=== PATIENT | male | born 1940 | race Caucasian/White ===

== ENCOUNTER 2017-02-03 07:46 | Day surgery (SDC) | payer OTHER ==
[2017-02-02 17:25] VITALS: BMI 26.6
[2017-02-03] MEDS ORDERED: SODIUM CHLORIDE 1,000 ML IV SCH (08:45)
--- NOTE | 2017-02-03 08:47 | HP ---
CHIEF COMPLAINT: CT enterography PCP: Dr. Merino GI: Dr. Mehta HISTORY OF PRESENT ILLNESS: 76 yr old man with HTN and renal insufficiency referred by Dr. Mehta for pre- post hydration for CT enterography to further evaluate intermittent abdominal spasm-like 10/10 pain for the past 3 years. pain is marked the left lower quadrant, at times in the RUQ, no alleviating or exacerbating factors. He has been having loss of appetite and notes unintentional 4lb weight loss in the past 2 weeks. Patient has no family. person to contact: Sheri Mendosa [phone]. Discussed resuscitation with patient; he has not thought about it in the past, does not have a healthcare proxy/advance directives. At this time he is not ready to make a decision. PAST MEDICAL HISTORY: HTN Renal Insufficiency PAST SURGICAL HISTORY: b/l knee replacement in 10/2016 osteoarthritis Social History: Smoking: denies Alcohol: denies Drugs: denies Allergies No Known Drug Allergies Allergy (Verified 02/02/17 17:28) HOME MEDICATIONS: Home Medications Medication Instructions Recorded Lisinopril [Prinivil] 5 mg PO DAILY 02/02/17 Omeprazole 20 mg PO DAILY 02/02/17 Vit C/E/Zn/Coppr/Lutein/Zeaxan 1 each PO DAILY 02/02/17 [Preservision Areds 2 Softgel] REVIEW OF SYSTEMS CONSTITUTIONAL: Present: unintentional weight loss of 4lbs in past 2 weeks Absent: fever, chills, diaphoresis, generalized weakness, malaise, loss of appetite, HEENT: Absent: difficulty swallowing, vision changes CARDIOVASCULAR: Present:b/l LE peripheral edema Absent: chest pain, syncope, palpitations, lightheadedness, RESPIRATORY: Absent: cough, shortness of breath GASTROINTESTINAL: Present:abdominal pain, nausea, Absent: abdominal distension, vomiting, diarrhea, constipation, melena, hematochezia GENITOURINARY: Absent: dysuria, frequency, urgency, hesitancy, hematuria, flank pain, genital pain NEUROLOGIC: Absent: headache, dizziness, unsteady gait, seizure, mental status changes, bladder or bowel incontinence PHYSICAL EXAMINATION GENERAL: Awake, alert, and fully oriented, in no acute distress. HEAD: Normal with no signs of trauma. EYES: Pupils equal, round and reactive to light, extraocular movements intact, sclera anicteric, conjunctiva clear. EARS, NOSE, THROAT: oropharynx clear without exudates. Moist mucous membranes. LUNGS: Breath sounds equal, clear to auscultation bilaterally. No wheezes, and no crackles. No accessory muscle use. HEART: Regular rate and rhythm, normal S1 and S2 without murmur, rub or gallop. ABDOMEN: Soft, mildly tender in RUQ and LLQ with deep palpation, not distended, normoactive bowel sounds, no guarding, no rebound, no masses. MUSCULOSKELETAL: No bony deformities or tenderness. UPPER EXTREMITIES: 2+ radial b/l pulses, warm, well-perfused. No cyanosis. No clubbing. No peripheral edema. LOWER EXTREMITIES: No calf tenderness. trace peripheral edema upto knees. NEUROLOGICAL:Normal speech. Normal gait. facial symmetry. 5/5 handgrip ASSESSMENT/PLAN: 76 yr old man here for CT enterography pre and post-hydration due to elevated Creatinine. #Renal insufficiency - 01/22 BMP with cr of 1.7, unable to obtain records from PCP's office to trend fxn, - IVF NS @ 100cc/hr for [address]ography and 4 hours post-exam - recommend pt to have repeat BMP in 2 days to evaluate Cr. #CT Enterography IV and po contrast #Diet: NPO for test, hold home medications (lisinopril and omeprazole) #DVT: anticipate short stay, encourage ambulation Visit type - Emergency Visit Emergency Visit: No - New Patient This patient is new to me today: Yes Date on this admission: 02/03/17 - Critical Care Critical Care patient: No
[2017-02-03 09:17] VITALS: TEMP 98.4
--- NOTE | 2017-02-03 15:38 | PN ---
Teaching Attending Note Name of Resident: Angely Galdamez ATTENDING PHYSICIAN STATEMENT I saw and evaluated the patient. I reviewed the resident's note and discussed the case with the resident. I agree with the resident's findings and plan as documented. SUBJECTIVE: This is a 76-year-old man with a history of HTN, CKD who comes in to undergo CT enterography for evaluation of intermittent abdominal pain. The pain has been occurring for about 3 years. It is usually in the LLQ. He has nausea, loss of appetite, weight loss of 4 lbs over the last 2 weeks. He denies fever, chills, vomiting, diarrhea, constipation, melena, rectal bleeding. OBJECTIVE: Vital Signs Period Temp Pulse Resp BP Sys/Powell Pulse Ox Last 24 Hr 98.4 F-98.4 F 88-88 18-18 107-107/57-57 HEART: S1 S2, RRR LUNGS: Clear ABDOMEN: Soft, non-distended, mild LLQ/RLQ tenderness, normal BS EXTREMITIES: No edema ASSESSMENT AND PLAN: This is a 76-year-old man with a history of HTN, CKD who comes in to undergo CT enterography for evaluation of intermittent abdominal pain. 1. Abdominal pain - Here for CT enterography - Needs IV hydration because of CKD - IV NS @ 100cc/hr x 4 hrs prior to and 4 hrs after exam 2. CKD - Baseline creatinine unknown 3. Hypertension - Continue Lisinopril
[2017-02-03 18:13] VITALS: BP 120/68; PULSE 76
== END 2017-02-03 18:00 | disposition home or self-care (01) ==
LOC: SUATTDRO 07:46 → JASUSAT 07:46 → JASU-SURG 07:46 → JASUSAT 18:00
PROVIDERS: ATTEND Internal Medicine
PROC: 3E0337Z Introduction of Electrolytic and Water Balance Substance into Peripheral Vein, Percutaneous Approach (ICD-10-PCS; principal; 2017-02-03)
DX: R10.32 Left lower quadrant pain (principal)
CPT/HCPCS: 96360; 96361

== ENCOUNTER 2017-04-12 06:36 | Day surgery (SDC) | payer OTHER ==
[2017-04-08 12:38] VITALS: BMI 27.2
[2017-04-12] MEDS ORDERED: MIDAZOLAM HCL 2 MG/2 ML SINGLE DOSE VIAL ONE (08:04)
[2017-04-12] MEDS ORDERED: PROPOFOL 20 ML ONE (08:04)
[2017-04-12] MEDS ORDERED: LIDOCAINE HCL/PF 2% SDV 5ML VIAL ONE (08:06)
[2017-04-12] MEDS ORDERED: LEVOFLOXACIN 500 MG IVPB 100 ML IVPB ONE (08:06)
[2017-04-12] MEDS ORDERED: ceFAZolin SODIUM 1 GM VIAL ONE (08:22)
[2017-04-12] MEDS ORDERED: ceFAZolin SODIUM 1 GM VIAL IVPB ONE (08:23)
[2017-04-12] MEDS ORDERED: oxyCODONE HCL 5 MG TABLET PO PRN (08:31)
--- NOTE | 2017-04-12 08:33 | OP ---
Operative Note - Note: Operative Date: 04/12/17 Pre-Operative Diagnosis: left distal ureteral stone-9mm Operation: ESWL Findings: LDU stone Post-Operative Diagnosis: Same as Pre-op Surgeon: Hay Cox Anesthesia: General Estimated Blood Loss (mls): 0 Operative Report Dictated: Yes
[2017-04-12] MEDS ORDERED: ELECTROLYTE-148 SOLN 1,000 ML IV SCH (08:45)
[2017-04-12] MEDS ORDERED: ACETAMINOPHEN 325 MG TABLET (FP) PO PRN (09:07)
[2017-04-12] MEDS ORDERED: ONDANSETRON 4 MG/2 ML VIAL IVPUSH PRN (09:07)
[2017-04-12] MEDS ORDERED: LACTATED RINGERS SOLUTION 1,000 ML IV SCH (09:15)
[2017-04-12 09:26] VITALS: TEMP 97.8
[2017-04-12 10:21] VITALS: BP 137/73; PULSE 67
--- NOTE | 2017-04-19 15:31 | OP ---
DATE OF OPERATION: 04/12/2017 PREOPERATIVE DIAGNOSIS: Left distal ureteral stone. POSTOPERATIVE DIAGNOSIS: Left distal ureteral stone. PROCEDURE: Extracorporeal shock wave lithotripsy. SURGEON: Trey Chan MD INDICATIONS: The patient is a 76-year-old male with a symptomatic left distal ureteral stone 9 mm in size. After reviewing treatment options, the patient elected to undergo ESWL. Risks, benefits and alternatives were discussed. DESCRIPTION OF PROCEDURE: After informed consent was obtained, the patient was taken to the OR and placed supine on the fluoroscopy table. Under active fluoroscopy, the stone was visualized, and then cardiac monitoring and general anesthesia were then established. Under active fluoroscopy, the stone was centered between the crosshairs and 3000 shocks were delivered. There appeared to be fragmentation of the stone after the procedure. The patient was then awoken from anesthesia and transferred to the recovery room in stable condition. There were no complications. Estimated blood loss was 0. TREY CHAN M.D. [id number]
== END 2017-04-12 10:15 | disposition home or self-care (01) ==
LOC: JASU-SURG 06:36
PROVIDERS: ATTEND Urology
PROC: 0TF7XZZ Fragmentation in Left Ureter, External Approach (ICD-10-PCS; principal; 2017-04-12 08:00)
DX: N20.1 Calculus of ureter (principal)
CPT/HCPCS: 94760

== ENCOUNTER 2017-05-12 08:19 | Day surgery (SDC) | payer OTHER ==
[2017-05-11 14:07] VITALS: BMI 27.3
[2017-05-12] MEDS ORDERED: MIDAZOLAM HCL 2 MG/2 ML SINGLE DOSE VIAL ONE (09:45)
[2017-05-12 10:14] LABS: INR 1.01 (0.82-1.09); PROTHROMBIN TIME (PATIENT) 11.4 SEC (9.98-11.88)
[2017-05-12] MEDS ORDERED: LIDOCAINE HCL/PF 2% SDV 5ML VIAL ONE (10:22)
[2017-05-12] MEDS ORDERED: LEVOFLOXACIN 500 MG IVPB 500 MG/100 ML BAG IVPB ONE (10:23)
[2017-05-12] MEDS ORDERED: PROPOFOL 20 ML ONE (10:23)
[2017-05-12] MEDS ORDERED: LEVOFLOXACIN 500 MG PREMIX BAG IVPB ONE (10:35)
[2017-05-12] MEDS ORDERED: FUROSEMIDE 40 MG/4 ML INJECTABLE VIAL ONE (10:57)
[2017-05-12] MEDS ORDERED: oxyCODONE HCL 5 MG TABLET PO PRN ×2 (11:20→11:29)
--- NOTE | 2017-05-12 11:22 | OP ---
Operative Note - Note: Operative Date: 05/12/17 Pre-Operative Diagnosis: impacted left DU stone Operation: cysto/retrograde/left ureteroscopy/laser litho/stent Findings: impacted LDU stone Post-Operative Diagnosis: Same as Pre-op Surgeon: Hay Cox Anesthesiologist/[employer] SUPERVISOR: Hay Garcia Anesthesia: General Estimated Blood Loss (mls): 1 Drains & Tubes with Location: 7fr 24cm stent Operative Report Dictated: Yes
[2017-05-12] MEDS ORDERED: ONDANSETRON 4 MG/2 ML VIAL IVPUSH PRN (11:29)
[2017-05-12] MEDS ORDERED: PROMETHAZINE HCL 25 MG/1 ML VIAL IVPUSH PRN (11:29)
[2017-05-12] MEDS ORDERED: LACTATED RINGERS SOLUTION 1,000 ML IV SCH (11:30)
[2017-05-12] MEDS ORDERED: DEXTROSE 5%-0.45% SALINE 1,000 ML IV SCH (11:30)
--- NOTE | 2017-05-12 12:16 | OP ---
DATE OF OPERATION: 05/12/2017 PREOPERATIVE DIAGNOSIS: Impacted left distal ureteral stone. POSTOPERATIVE DIAGNOSIS: Impacted left distal ureteral stone. PROCEDURE: Cystoscopy, ureteroscopy, laser lithotripsy, stone basketing, and stent placement. SURGEON: Trey Chan MD INDICATION: Patient is a 76-year-old male with an approximately 1-cm left distal ureteral stone, has failed ESWL, was taken to the OR for laser lithotripsy. Risks, benefits, and alternatives discussed including the risks of bleeding, infection, stricture formation, potential need for additional surgery, potential inability to eradicate stone burden. DESCRIPTION OF PROCEDURE: After informed consent was obtained, patient was taken to the OR, placed supine on the table. After cardiac monitoring administered, general anesthesia was established. She was prepped and draped in the dorsal lithotomy position. The 22-sheath cystoscope was inserted into the urethra without difficulty. Anterior urethra was normal. The prostatic urethra was 4 cm and visually occlusive with an enlarged median bar. There bladder was visualized. No tumors or stones were noted in the bladder. Attention was turned to the left ureteral orifice which was intubated with a ureteral catheter. Contrast injected for retrograde pyelogram. There was hydronephrosis down to the level of the distal ureter where the stone was seen. Guidewire was advanced beyond the stone into the left renal pelvis. Alongside the guidewire, a semi-rigid ureteroscope was advanced into the ureter where an approximately 1-cm stone was seen impacted in the ureter with narrowing of the ureteral wall. The stone was pulverized to fine dust and 1-2 mm fragments. Several of these fragments were then evacuated out, and a basket was used to remove two of these fragments and sent to Pathology for analysis. With the entire stone burden cleared, the ureter was inspected up to the level of the mid-ureter. No other stone was noted. Again, the ureter where the stone appeared to be impacted was narrowed, indicating some stricture. Ureteroscope was then removed, and a 7-[place] 24-cm double-pigtail stent was then advanced in monorail fashion. Fluoroscopy the stent to be in good position. The patient was then awoken from anesthesia and transferred to the recovery room in stable condition. There were no complications. Estimated blood loss was minimal. TREY CHAN M.D. [id number]
[2017-05-12 12:29] VITALS: TEMP 97.9
[2017-05-12 15:38] VITALS: BP 128/77; PULSE 73
--- NOTE | 2017-05-13 08:59 | PATH ---
Surgical Pathology Report Patient Name: MADDIE DOWNING [facility]. Rec. #: [id number] /Age/Gender: 1940 (Age: 76) / M Account: [id number] Location: [facility] SURGICAL Taken: 05/12/2017 Received: 05/12/2017 Reported: 05/13/2017 Physicians: Hay Cox M.D. Specimen(s) Received LEFT URETER STONE Clinical History Ureter stone Final Diagnosis LEFT URETERAL STONE, EXTRACTION: CALCULI SUBMITTED FOR CHEMICAL ANALYSIS (gross only). Electronically Signed Mulugeta Lyn M.D. Gross Description Received fresh labeled "left ureter stone," are 2 chandler, irregular calculi measuring 0.2 and 0.4 cm in greatest dimension. The specimens are sent for chemical analysis. 05/12/201705/12/2017
== END 2017-05-12 15:30 | disposition home or self-care (01) ==
LOC: JASU-SURG 08:19
PROVIDERS: ATTEND Urology
PROC: 0TF78ZZ Fragmentation in Left Ureter, Via Natural or Artificial Opening Endoscopic (ICD-10-PCS; principal; 2017-05-12 11:00)
PROC: 0T778DZ Dilation of Left Ureter with Intraluminal Device, Via Natural or Artificial Opening Endoscopic (ICD-10-PCS; 2017-05-12 11:00)
DX: N20.1 Calculus of ureter (principal)
CPT/HCPCS: 36415; 76000-TC; 82360; 85610; 88300-TC; 94760

== ENCOUNTER 2023-04-21 05:15 | Day surgery (SDC) | payer OTHER ==
[2023-04-20 09:11] VITALS: BMI 25.9
[2023-04-21 12:31] VITALS: TEMP 97.5
[2023-04-21 13:18] VITALS: RESP 18
[2023-04-21 13:19] VITALS: BP 130/64; PULSE 66
== END 2023-04-21 13:00 | disposition home or self-care (01) ==
LOC: JASU-ENDO 05:15
PROVIDERS: ATTEND Internal Medicine Gastroenterology
PROC: 0DBL8ZX Excision of Transverse Colon, Via Natural or Artificial Opening Endoscopic, Diagnostic (ICD-10-PCS; 2023-04-21)
PROC: 0DB68ZX Excision of Stomach, Via Natural or Artificial Opening Endoscopic, Diagnostic (ICD-10-PCS; 2023-04-21)
PROC: 0DB78ZX Excision of Stomach, Pylorus, Via Natural or Artificial Opening Endoscopic, Diagnostic (ICD-10-PCS; 2023-04-21)
PROC: 0DBK8ZX Excision of Ascending Colon, Via Natural or Artificial Opening Endoscopic, Diagnostic (ICD-10-PCS; principal; 2023-04-21 11:30)
DX: D12.3 Benign neoplasm of transverse colon (principal); K57.30 Diverticulosis of large intestine without perforation or abscess without bleeding; N40.0 Benign prostatic hyperplasia without lower urinary tract symptoms; K31.7 Polyp of stomach and duodenum; K44.9 Diaphragmatic hernia without obstruction or gangrene; I10 Essential (primary) hypertension
CPT/HCPCS: 88305-TC; 88342-TC

== ENCOUNTER 2023-05-19 00:50 | Observation (INO) | payer OTHER ==
[2023-05-19] MEDS ORDERED: ACETAMINOPHEN 1000 MG/100 ML BAG IVPB ONE (02:20)
[2023-05-19] MEDS ORDERED: ACETAMINOPHEN INJECTION 100 ML IVPB ONE (02:33)
[2023-05-19 02:53] LABS: BASO % 0.2 % (0-2.0); EOS % 0.4 % (0-4.5); HEMATOCRIT 38.3 % (35.4-49); HEMOGLOBIN 12.9 GM/dL (11.7-16.9); LYMPH % 15.2 % (8-40); MCH 30.8 pg (25.7-33.7); MCHC 33.6 g/dl (32.0-35.9); MEAN CELL VOLUME 91.7 fl (80-96); MEAN PLT VOLUME 9.2 fl (7.5-11.1); MONO % 14.7 % (3.8-10.2); NEUT % 69.5 % (42.8-82.8); PLATELET COUNT 235 10^3/uL (134-434); RBC 4.17 M/mm3 (4.00-5.60); WHITE BLOOD COUNT 7.4 K/mm3 (4.0-10.0)
[2023-05-19 02:54] LABS: PH,URINE 5.5 (5.0-8.0); URINE APPEARANCE CLEAR; URINE BILIRUBIN NEGATIVE (NEGATIVE); URINE COLOR YELLOW; URINE GLUCOSE (UA) NEGATIVE (NEGATIVE); URINE KETONE TRACE (NEGATIVE); URINE LEUK ESTERASE NEGATIVE (NEGATIVE); URINE NITRITE NEGATIVE (NEGATIVE); URINE PROTEIN TRACE (NEGATIVE); URINE UROBILINOGEN 0.2 mg/dL (0.2-1.0)
[2023-05-19 03:14] LABS: POTASSIUM 4.4 mmol/L (3.5-5.1)
[2023-05-19 03:16] LABS: ALBUMIN 3.6 g/dl (3.4-5.0); BLOOD UREA NITROGEN 22.6 mg/dL (7-18); CALCIUM 9.2 mg/dL (8.5-10.1)
[2023-05-19 03:18] LABS: INR 1.24 (0.83-1.09); PROTHROMBIN TIME (PATIENT) 14.3 SEC (9.7-13.0)
[2023-05-19 03:19] LABS: CREATININE 1.6 mg/dL (0.55-1.3)
[2023-05-19 03:20] LABS: ACTIVATED PTT 33.9 SECONDS (25.2-36.5)
[2023-05-19 03:21] LABS: BILIRUBIN,TOTAL 0.6 mg/dL (0.2-1); TOT PROT 7.3 g/dl (6.4-8.2)
[2023-05-19] MEDS ORDERED: SODIUM CHLORIDE 1,000 ML IV SCH (08:30)
[2023-05-19] MEDS ORDERED: ACETAMINOPHEN 1000 MG/100 ML BAG IVPB PRN (08:53)
[2023-05-19] MEDS ORDERED: ATORVASTATIN CA 20 MG TABLET (FP) PO SCH (09:00)
[2023-05-19] MEDS ORDERED: LEVOTHYROXINE NA 50 MCG TABLET (FP) PO SCH (09:00)
[2023-05-19] MEDS ORDERED: PATIENT'S OWN MEDICATION (NON-FORMULARY) (Famotidine [Pepcid] 40 MG Tablet) PO SCH (10:00)
[2023-05-19] MEDS ORDERED: FAMOTIDINE 20 MG TABLET PO SCH (10:00)
[2023-05-19] MEDS ORDERED: MULTIVITAMINS (DAILY MVI) TABLET (FP) PO SCH (10:00)
[2023-05-19] MEDS ORDERED: CHOLECALCIFEROL (VIT D3) 400 UNIT (10 MCG) TABLET PO SCH (10:00)
[2023-05-19] MEDS ORDERED: amLODIPine BESYLATE 2.5 MG TABLET (FP) PO SCH (10:00)
[2023-05-19] MEDS ORDERED: LEVOTHYROXINE NA 25 MCG TABLET (FP) PO SCH (10:39)
[2023-05-19 11:29] VITALS: BMI 25.9
[2023-05-19 15:57] VITALS: BP 150/87; PULSE 84; RESP 18; TEMP 98.2
[2023-05-20] MEDS ORDERED: ATORVASTATIN CA 20 MG TABLET (FP) PO SCH (22:00)
== END 2023-05-19 19:42 | disposition home or self-care (01) ==
LOC: JER 00:50 → INTOOBSV 07:46 → UNDOADMOB 07:46 → JERBED 07:46 → J6S 08:51
PROVIDERS: ADMIT Internal Medicine; ATTEND Internal Medicine
PROC: 3E033NZ Introduction of Analgesics, Hypnotics, Sedatives into Peripheral Vein, Percutaneous Approach (ICD-10-PCS; principal; 2023-05-19)
PROC: 3E0337Z Introduction of Electrolytic and Water Balance Substance into Peripheral Vein, Percutaneous Approach (ICD-10-PCS; 2023-05-19)
DX: K86.9 Disease of pancreas, unspecified (principal); K76.9 Liver disease, unspecified; R19.00 Intra-abdominal and pelvic swelling, mass and lump, unspecified site; I10 Essential (primary) hypertension; E78.5 Hyperlipidemia, unspecified; N40.0 Benign prostatic hyperplasia without lower urinary tract symptoms; E03.9 Hypothyroidism, unspecified; H91.90 Unspecified hearing loss, unspecified ear; K44.9 Diaphragmatic hernia without obstruction or gangrene; K80.20 Calculus of gallbladder without cholecystitis without obstruction
CPT/HCPCS: 36415; 71045-TC-FY; 74177-TC; 80053; 81003; 83605; 83690; 84484; 85025; 85610; 85730; 93005; 93010; 96361; 96374; 99285-25; G0378; Q9967

== ENCOUNTER 2023-06-01 05:28 | Day surgery (SDC) | payer OTHER ==
[2023-05-31 10:16] VITALS: BMI 25.2
[2023-06-01 09:16] VITALS: TEMP 97.8
[2023-06-01] MEDS ORDERED: MIDAZOLAM HCL 2 MG/2 ML SINGLE DOSE VIAL ONE (10:20)
[2023-06-01] MEDS ORDERED: FENTANYL CITRATE/PF 50 MCG/ML VIAL ONE (10:20)
[2023-06-01] MEDS ORDERED: SODIUM CHLORIDE 500 ML IV ONE (10:45)
[2023-06-01] MEDS ORDERED: MIDAZOLAM HCL 2 MG/2 ML SINGLE DOSE VIAL IVPUSH ONE (10:55)
[2023-06-01] MEDS ORDERED: ACETAMINOPHEN 1000 MG/100 ML BAG IVPB PRN (11:30)
[2023-06-01 15:47] VITALS: BP 140/80; RESP 20
[2023-06-01 16:28] VITALS: PULSE 78
== END 2023-06-01 15:30 | disposition home or self-care (01) ==
LOC: JRADIR 05:28
PROVIDERS: ATTEND Internal Medicine Hematology & Oncology
PROC: 0FB03ZX Excision of Liver, Percutaneous Approach, Diagnostic (ICD-10-PCS; principal; 2023-06-01)
PROC: 0W9G3ZZ Drainage of Peritoneal Cavity, Percutaneous Approach (ICD-10-PCS; 2023-06-01)
DX: C22.7 Other specified carcinomas of liver (principal); R18.8 Other ascites
CPT/HCPCS: 47000; 77012-TC; 88108; 88305-TC; 88307-TC; 88341-TC; 88342-TC

== ENCOUNTER 2023-06-17 07:07 | Day surgery (SDC) | payer OTHER ==
[2023-06-15 13:32] VITALS: BMI 24.2
[2023-06-17 07:51] LABS: INR 1.26 (0.83-1.09); PROTHROMBIN TIME (PATIENT) 14.6 SEC (9.7-13.0)
[2023-06-17] MEDS ORDERED: FENTANYL CITRATE/PF 50 MCG/ML VIAL ONE (10:55)
[2023-06-17] MEDS ORDERED: MIDAZOLAM HCL 2 MG/2 ML SINGLE DOSE VIAL ONE (10:55)
[2023-06-17] MEDS ORDERED: SODIUM CHLORIDE 500 ML IV ONE (11:35)
[2023-06-17] MEDS ORDERED: MIDAZOLAM HCL 2 MG/2 ML SINGLE DOSE VIAL IVPUSH ONE (11:50)
[2023-06-17] MEDS ORDERED: FENTANYL CITRATE/PF 50 MCG/ML VIAL IVPUSH ONE (11:50)
[2023-06-17 13:00] VITALS: RESP 18; TEMP 98.2
[2023-06-17] MEDS ORDERED: ACETAMINOPHEN 325 MG TABLET (FP) ONE ×2 (13:03→13:05)
[2023-06-17 13:38] VITALS: BP 138/70; PULSE 83
== END 2023-06-17 13:35 | disposition home or self-care (01) ==
LOC: JRADIR 07:07
PROVIDERS: ATTEND Internal Medicine Hematology & Oncology
PROC: 0JH63WZ Insertion of Totally Implantable Vascular Access Device into Chest Subcutaneous Tissue and Fascia, Percutaneous Approach (ICD-10-PCS; principal; 2023-06-17)
PROC: 05HM33Z Insertion of Infusion Device into Right Internal Jugular Vein, Percutaneous Approach (ICD-10-PCS; 2023-06-17)
PROC: B513ZZA Fluoroscopy of Right Jugular Veins, Guidance (ICD-10-PCS; 2023-06-17)
DX: C25.1 Malignant neoplasm of body of pancreas (principal)
CPT/HCPCS: 36561; C1788; 85610

== ENCOUNTER 2023-06-17 09:33 | Day surgery (SDC) | payer OTHER ==
[2023-06-17 08:11] LABS: POTASSIUM 4.6 mmol/L (3.5-5.1)
[2023-06-17 08:13] LABS: CALCIUM 9.2 mg/dL (8.5-10.1)
[2023-06-17 08:14] LABS: ALBUMIN 3.4 g/dl (3.4-5.0); BLOOD UREA NITROGEN 26.2 mg/dL (7-18)
[2023-06-17 08:16] LABS: BILIRUBIN,DIRECT 0.2 mg/dL (0.0-0.2)
[2023-06-17 08:17] LABS: CREATININE 1.4 mg/dL (0.55-1.3)
[2023-06-17 08:18] LABS: BILIRUBIN,TOTAL 0.6 mg/dL (0.2-1); TOT PROT 7.4 g/dl (6.4-8.2)
[2023-06-17 08:24] LABS: BASO % 0.3 % (0-2.0); EOS % 1.1 % (0-4.5); HEMATOCRIT 39.1 % (35.4-49); HEMOGLOBIN 12.8 GM/dL (11.7-16.9); MCHC 32.8 g/dl (32.0-35.9); MEAN CELL VOLUME 91.5 fl (80-96); MEAN PLT VOLUME 9.7 fl (7.5-11.1); NEUT % 74.6 % (42.8-82.8); PLATELET COUNT 175 10^3/uL (134-434); RBC 4.28 M/mm3 (4.00-5.60); WHITE BLOOD COUNT 7.9 K/mm3 (4.0-10.0)
[2023-06-17 08:50] LABS: PLATELET ESTIMATE ADEQUATE
[~2023-06-17 09:33] MED LIST: SODIUM CHLORIDE 250 ML IV ONE
[2023-06-17] MEDS ORDERED: GRANISETRON HCL/PF 1 MG in SODIUM CHLORIDE 50 ML IVPB ONE (10:00)
[2023-06-17] MEDS ORDERED: DEXAMETHASONE SODIUM PHOSPHATE 10 MG in SODIUM CHLORIDE 50 ML IVPB ONE (10:00)
[2023-06-17] MEDS ORDERED: SODIUM CHLORIDE IVPB ONE ×2 (10:30→14:45)
[2023-06-17] MEDS ORDERED: PACLITAXEL PROTEIN BOUND IVPB ONE ×2 (10:30→14:45)
[2023-06-17] MEDS ORDERED: SODIUM CHLORIDE IV ONE (11:00)
[2023-06-17] MEDS ORDERED: GEMCITABINE HCL IV ONE (11:00)
[2023-06-17] MEDS ORDERED: MIDAZOLAM HCL 2 MG/2 ML SINGLE DOSE VIAL IVPUSH ONE (13:00)
[2023-06-17] MEDS ORDERED: FENTANYL CITRATE/PF 50 MCG/ML VIAL IVPUSH ONE (13:00)
[2023-06-17] MEDS ORDERED: FENTANYL CITRATE/PF 50 MCG/ML VIAL IVPUSH SCH (13:00)
[2023-06-17 17:03] VITALS: TEMP 97.7
[2023-06-17 17:18] VITALS: BP 114/70; PULSE 97; RESP 18
[2023-06-17] MEDS ORDERED: PORTA CATH FLUSH 10 ML IVPUSH PRN (17:18)
== END 2023-06-17 16:45 | disposition home or self-care (01) ==
LOC: JONCCHEMO 09:33 → J7W 09:35 → JONCCHEMO 16:45
PROVIDERS: ATTEND Internal Medicine Hematology & Oncology
DX: Z51.11 Encounter for antineoplastic chemotherapy (principal); C25.1 Malignant neoplasm of body of pancreas
CPT/HCPCS: 36415; 80048; 80076; 85025; 96375; 96413; 96417; J9264

== ENCOUNTER 2023-06-24 09:50 | Day surgery (SDC) | payer OTHER ==
[~2023-06-24 09:50] MED LIST changes: +DEXAMETHASONE SODIUM PHOSPHATE 10 MG in SODIUM CHLORIDE 50 ML IVPB ONE; +GRANISETRON HCL/PF 1 MG in SODIUM CHLORIDE 50 ML IVPB ONE; +PACLITAXEL PROTEIN BOUND IVPB ONE; +SODIUM CHLORIDE IVPB ONE
[2023-06-24] MEDS ORDERED: SODIUM CHLORIDE IVPB ONE ×2 (10:00→13:30)
[2023-06-24] MEDS ORDERED: PACLITAXEL PROTEIN BOUND IVPB ONE ×2 (10:00→13:30)
[2023-06-24 10:13] LABS: BASO % 0.2 % (0-2.0); EOS % 0.6 % (0-4.5); HEMATOCRIT 35.2 % (35.4-49); HEMOGLOBIN 11.7 GM/dL (11.7-16.9); LYMPH % 21.7 % (8-40); MCH 30.8 pg (25.7-33.7); MCHC 33.3 g/dl (32.0-35.9); MEAN CELL VOLUME 92.5 fl (80-96); MEAN PLT VOLUME 8.8 fl (7.5-11.1); MONO % 8.6 % (3.8-10.2); NEUT % 68.9 % (42.8-82.8); PLATELET COUNT 111 10^3/uL (134-434); RBC 3.81 M/mm3 (4.00-5.60); RDW 13.5 % (11.9-15.9); WHITE BLOOD COUNT 3.6 K/mm3 (4.0-10.0)
[2023-06-24] MEDS ORDERED: SODIUM CHLORIDE IV ONE (10:30)
[2023-06-24] MEDS ORDERED: GEMCITABINE HCL IV ONE (10:30)
[2023-06-24 11:32] LABS: POTASSIUM 4.9 mmol/L (3.5-5.1)
[2023-06-24 11:35] LABS: ALBUMIN 2.8 g/dl (3.4-5.0); BLOOD UREA NITROGEN 32.7 mg/dL (7-18)
[2023-06-24 11:37] LABS: BILIRUBIN,DIRECT 0.2 mg/dL (0.0-0.2)
[2023-06-24 11:38] LABS: CREATININE 1.5 mg/dL (0.55-1.3)
[2023-06-24 11:39] LABS: BILIRUBIN,TOTAL 0.6 mg/dL (0.2-1); TOT PROT 6.8 g/dl (6.4-8.2)
[2023-06-24 17:21] VITALS: BP 136/79; PULSE 79; RESP 18; TEMP 97.4
[2023-06-24] MEDS ORDERED: PORTA CATH FLUSH 10 ML IVPUSH PRN (17:21)
== END 2023-06-24 16:15 | disposition home or self-care (01) ==
LOC: JONCCHEMO 09:50 → J7W 09:52 → JONCCHEMO 16:15
PROVIDERS: ATTEND Internal Medicine Hematology & Oncology
DX: Z51.11 Encounter for antineoplastic chemotherapy (principal); C25.1 Malignant neoplasm of body of pancreas
CPT/HCPCS: 36415; 80048; 80076; 85025; 96375; 96413; 96417; J9264

== ENCOUNTER 2023-06-28 23:46 | Inpatient (IN) | payer OTHER ==
[2023-06-29] VITALS: BMI 23.6
[2023-06-29] MEDS ORDERED: SODIUM CHLORIDE 0.9% 500 ML INFUS.BAG IV ONE (00:19)
[2023-06-29] MEDS ORDERED: MAG HYDROX/AL HYDROX/SIMETH 30 ML UNIT-DOSE CUP PO ONE (00:19)
[2023-06-29] MEDS ORDERED: ONDANSETRON 4 MG/2 ML VIAL IVPUSH ONE (00:19)
[2023-06-29] MEDS ORDERED: FAMOTIDINE 20 MG/50 ML IVPB 20 MG/50 ML MG IVPB ONE ×2 (00:19→01:11)
[2023-06-29 01:10] LABS: HEMATOCRIT 28.6 % (35.4-49); HEMOGLOBIN 9.5 GM/dL (11.7-16.9); MCH 30.4 pg (25.7-33.7); MCHC 33.2 g/dl (32.0-35.9); MEAN CELL VOLUME 91.6 fl (80-96); MEAN PLT VOLUME 8.5 fl (7.5-11.1); PLATELET COUNT 148 10^3/uL (134-434); RBC 3.12 M/mm3 (4.00-5.60); RDW 13.8 % (11.9-15.9); WHITE BLOOD COUNT 4.8 K/mm3 (4.0-10.0)
[2023-06-29] MEDS ORDERED: ONDANSETRON 4 MG/2 ML VIAL ONE (01:11)
[2023-06-29 01:33] LABS: POTASSIUM 4.6 mmol/L (3.5-5.1)
[2023-06-29 01:34] LABS: CALCIUM 8.9 mg/dL (8.5-10.1)
[2023-06-29 01:36] LABS: ALBUMIN 2.5 g/dl (3.4-5.0); BLOOD UREA NITROGEN 37.8 mg/dL (7-18); MAGNESIUM 2.2 mg/dL (1.8-2.4)
[2023-06-29 01:38] LABS: CREATININE 1.4 mg/dL (0.55-1.3)
[2023-06-29 01:40] LABS: TOT PROT 6.1 g/dl (6.4-8.2)
[2023-06-29 01:41] LABS: BILIRUBIN,TOTAL 0.9 mg/dL (0.2-1)
[2023-06-29] MEDS ORDERED: MAG HYDROX/AL HYDROX/SIMETH 30 ML UNIT-DOSE CUP ONE (02:29)
[2023-06-29] MEDS ORDERED: MELATONIN 5 MG TABLETS PO ONE (03:54)
[2023-06-29] MEDS ORDERED: ONDANSETRON *ODT* 4 MG TABLET SL PRN (04:39)
[2023-06-29] MEDS: LACTATED RINGERS SOLUTION 1,000 ML/1,000 ML INFUS.BAG IV SCH ×2 (04:58→21:00)
[2023-06-29 05:38] LABS: ANISOCYTOSIS 3+; MACROCYTOSIS 0; OVALOCYTE 1+; ROULEAU 1+
[2023-06-29 07:09] LABS: EPI CELLS 6 /uL (0-25.1); HYALINE CASTS 3 /uL (0-3.1); URINE APPEARANCE CLEAR; URINE BACTERIA 3 /uL (0-1359); URINE BILIRUBIN NEGATIVE (NEGATIVE); URINE COLOR YELLOW; URINE GLUCOSE (UA) NEGATIVE (NEGATIVE); URINE KETONE TRACE (NEGATIVE); URINE LEUK ESTERASE NEGATIVE (NEGATIVE); URINE NITRITE NEGATIVE (NEGATIVE); URINE PROTEIN 1+ (NEGATIVE); URINE RBC 16 /uL (0-23.9); URINE WBC 9 /uL (0-25.8)
[2023-06-29 07:31] LABS: HEMATOCRIT 24.8 % (35.4-49); HEMOGLOBIN 8.3 GM/dL (11.7-16.9); MCH 30.9 pg (25.7-33.7); MCHC 33.6 g/dl (32.0-35.9); MEAN CELL VOLUME 92.1 fl (80-96); MEAN PLT VOLUME 9.5 fl (7.5-11.1); PLATELET COUNT 108 10^3/uL (134-434); RDW 13.6 % (11.9-15.9)
[2023-06-29 07:43] LABS: WHITE BLOOD COUNT 3.4 K/mm3 (4.0-10.0)
[2023-06-29 07:53] LABS: POTASSIUM 4.6 mmol/L (3.5-5.1)
[2023-06-29 07:55] LABS: CALCIUM 8.4 mg/dL (8.5-10.1)
[2023-06-29 07:57] LABS: ALBUMIN 2.2 g/dl (3.4-5.0); BLOOD UREA NITROGEN 35.6 mg/dL (7-18)
[2023-06-29 08:00] LABS: BILIRUBIN,TOTAL 0.9 mg/dL (0.2-1); CREATININE 1.2 mg/dL (0.55-1.3); TOT PROT 5.5 g/dl (6.4-8.2)
[2023-06-29] MEDS ORDERED: ONDANSETRON *ODT* 4 MG TABLET ONE (08:48)
[2023-06-29] MEDS: PANTOPRAZOLE 40 MG TABLET PO SCH (09:31)
[2023-06-29] MEDS: ENOXAPARIN NA (PORCINE) 40 MG/0.4 ML DISP.SYRIN SQ SCH (09:31)
[2023-06-30 08:30] LABS: HEMATOCRIT 27.8 % (35.4-49); HEMOGLOBIN 9.2 GM/dL (11.7-16.9); MCH 30.3 pg (25.7-33.7); MCHC 33.1 g/dl (32.0-35.9); MEAN CELL VOLUME 91.6 fl (80-96); MEAN PLT VOLUME 8.2 fl (7.5-11.1); PLATELET COUNT 119 10^3/uL (134-434); RBC 3.03 M/mm3 (4.00-5.60); RDW 13.6 % (11.9-15.9)
[2023-06-30 08:43] LABS: POTASSIUM 4.4 mmol/L (3.5-5.1)
[2023-06-30 09:27] LABS: ALBUMIN 2.3 g/dl (3.4-5.0); BLOOD UREA NITROGEN 30.7 mg/dL (7-18); CALCIUM 9.2 mg/dL (8.5-10.1)
[2023-06-30 09:32] LABS: BILIRUBIN,TOTAL 0.6 mg/dL (0.2-1); TOT PROT 5.6 g/dl (6.4-8.2)
[2023-06-30 09:40] LABS: ANISOCYTOSIS 0; MACROCYTOSIS 0
[2023-06-30] MEDS: ENOXAPARIN NA (PORCINE) 40 MG/0.4 ML DISP.SYRIN SQ SCH (10:24)
[2023-06-30] MEDS: PANTOPRAZOLE 40 MG TABLET PO SCH (10:24)
[2023-06-30 10:46] LABS: WHITE BLOOD COUNT 1.4 K/mm3 (4.0-10.0)
[2023-06-30] MEDS ORDERED: FENTANYL PATCH WASTE TD PRN (11:09)
[2023-06-30] MEDS: fentaNYL 12mcg/hr PATCH.TD72 TD SCH (11:32)
[2023-06-30] MEDS: DOCUSATE SODIUM 100 MG CAPSULE (FP) PO PRN ×2 (13:08→23:28)
[2023-06-30] MEDS: morphine SULFATE 4 MG/ML VIAL IVPUSH PRN ×2 (14:15→22:19)
[2023-07-01] MEDS: morphine SULFATE 4 MG/ML VIAL IVPUSH PRN ×4 (06:10→23:49)
[2023-07-01] MEDS: ENOXAPARIN NA (PORCINE) 40 MG/0.4 ML DISP.SYRIN SQ SCH (09:11)
[2023-07-01] MEDS: PANTOPRAZOLE 40 MG TABLET PO SCH (09:15)
[2023-07-01] MEDS: DOCUSATE SODIUM 100 MG CAPSULE (FP) PO PRN ×2 (09:19→23:49)
[2023-07-01] MEDS ORDERED: morphine SULFATE 10 MG/5 ML UNIT-DOSE CUP PO PRN (11:35)
[2023-07-02] MEDS: morphine SULFATE 4 MG/ML VIAL IVPUSH PRN ×4 (06:03→21:38)
[2023-07-02] MEDS: PANTOPRAZOLE 40 MG TABLET PO SCH (09:29)
[2023-07-02] MEDS: ENOXAPARIN NA (PORCINE) 40 MG/0.4 ML DISP.SYRIN SQ SCH (09:31)
[2023-07-02] MEDS: DOCUSATE SODIUM 100 MG CAPSULE (FP) PO PRN ×2 (10:04→21:39)
[2023-07-02] MEDS ORDERED: PATIENT'S OWN MEDICATION (NON-FORMULARY) (Vit A/Vit C/Vit E/Zinc/Copper [Preservision Ared PO SCH (14:45)
[2023-07-02] MEDS ORDERED: FAMOTIDINE 40 MG TABLET PO SCH (14:45)
[2023-07-02] MEDS: LEVOTHYROXINE NA 25 MCG TABLET (FP) PO SCH (15:24)
[2023-07-02] MEDS: FAMOTIDINE 20 MG TABLET PO SCH (15:34)
[2023-07-03] MEDS: LEVOTHYROXINE NA 25 MCG TABLET (FP) PO SCH (06:17)
[2023-07-03] MEDS: morphine SULFATE 4 MG/ML VIAL IVPUSH PRN ×2 (06:17→21:18)
[2023-07-03] MEDS: FAMOTIDINE 20 MG TABLET PO SCH (09:36)
[2023-07-03] MEDS: ENOXAPARIN NA (PORCINE) 40 MG/0.4 ML DISP.SYRIN SQ SCH (09:36)
[2023-07-03] MEDS: amLODIPine BESYLATE 2.5 MG TABLET (FP) PO SCH (09:36)
[2023-07-03] MEDS: CHOLECALCIFEROL (VIT D3) 400 UNIT (10 MCG) TABLET PO SCH (09:36)
[2023-07-03] MEDS: DOCUSATE SODIUM 100 MG CAPSULE (FP) PO PRN (09:37)
[2023-07-03] MEDS: fentaNYL 12mcg/hr PATCH.TD72 TD SCH (10:56)
[2023-07-03] MEDS ORDERED: BISACODYL 5 MG TABLET.DR (FP) PO ONE ×2 (16:15→22:15)
[2023-07-03] MEDS ORDERED: morphine SULFATE 10 MG/5 ML UNIT-DOSE CUP PO PRN (17:52)
[2023-07-03] MEDS: DOCUSATE SODIUM 100 MG CAPSULE (FP) PO SCH (21:18)
[2023-07-04] MEDS: LEVOTHYROXINE NA 25 MCG TABLET (FP) PO SCH (06:59)
[2023-07-04] MEDS: morphine SULFATE 4 MG/ML VIAL IVPUSH PRN (06:59)
[2023-07-04] MEDS: amLODIPine BESYLATE 2.5 MG TABLET (FP) PO SCH (09:13)
[2023-07-04] MEDS: ENOXAPARIN NA (PORCINE) 40 MG/0.4 ML DISP.SYRIN SQ SCH ×2 (09:13→09:15)
[2023-07-04] MEDS: CHOLECALCIFEROL (VIT D3) 400 UNIT (10 MCG) TABLET PO SCH (09:13)
[2023-07-04] MEDS: DOCUSATE SODIUM 100 MG CAPSULE (FP) PO SCH ×2 (09:13→21:16)
[2023-07-04] MEDS: FAMOTIDINE 20 MG TABLET PO SCH (09:13)
[2023-07-04 14:42] VITALS: RESP 18
[2023-07-04] MEDS ORDERED: ATORVASTATIN CA 20 MG TABLET (FP) PO SCH (22:00)
[2023-07-05 05:45] VITALS: BP 114/63; PULSE 82; TEMP 98.1
[2023-07-05] MEDS: LEVOTHYROXINE NA 25 MCG TABLET (FP) PO SCH (06:14)
[2023-07-05] MEDS: amLODIPine BESYLATE 2.5 MG TABLET (FP) PO SCH (10:01)
[2023-07-05] MEDS: CHOLECALCIFEROL (VIT D3) 400 UNIT (10 MCG) TABLET PO SCH (10:01)
[2023-07-05] MEDS: FAMOTIDINE 20 MG TABLET PO SCH (10:01)
[2023-07-05] MEDS: DOCUSATE SODIUM 100 MG CAPSULE (FP) PO SCH (10:01)
[2023-07-05] MEDS: ENOXAPARIN NA (PORCINE) 40 MG/0.4 ML DISP.SYRIN SQ SCH (10:08)
== END 2023-07-05 10:58 | disposition home or self-care (01) | DRG 951 ==
LOC: JER 23:46 → JERBED 06-29 02:20 → J6S 06-29 19:54
PROVIDERS: ADMIT Internal Medicine; ATTEND Internal Medicine
DX: Z51.5 Encounter for palliative care (principal); D61.810 Antineoplastic chemotherapy induced pancytopenia; C25.9 Malignant neoplasm of pancreas, unspecified; C78.7 Secondary malignant neoplasm of liver and intrahepatic bile duct; D61.818 Other pancytopenia; E86.0 Dehydration; R62.7 Adult failure to thrive; Z68.24 Body mass index [BMI] 24.0-24.9, adult; R11.2 Nausea with vomiting, unspecified; T45.1X5A Adverse effect of antineoplastic and immunosuppressive drugs, initial encounter; E78.5 Hyperlipidemia, unspecified; E03.9 Hypothyroidism, unspecified; N40.0 Benign prostatic hyperplasia without lower urinary tract symptoms; K44.9 Diaphragmatic hernia without obstruction or gangrene; I10 Essential (primary) hypertension; N18.9 Chronic kidney disease, unspecified; G89.3 Neoplasm related pain (acute) (chronic)
CPT/HCPCS: 0241U-QW; 36415; 71045-TC-FY; 80053; 81003; 83605; 83690; 83735; 84484; 85025; 85027; 86850; 86900; 86901; 87086; 93005; 93010; 99285-25; Q0162

== ENCOUNTER 2023-07-07 13:34 | Emergency (ER) | payer OTHER ==
[2023-07-07 13:59] VITALS: BP 127/77; PULSE 97; RESP 17; TEMP 97.5; BMI 24.2
[2023-07-07] MEDS ORDERED: METOCLOPRAMIDE HCL INJECTION 10 MG/2 ML VIAL IVPUSH ONE (15:24)
[2023-07-07] MEDS ORDERED: ACETAMINOPHEN 1000 MG/100 ML BAG IVPB ONE (15:24)
[2023-07-07] MEDS ORDERED: METOCLOPRAMIDE HCL INJECTION 10 MG/2 ML VIAL ONE (15:29)
[2023-07-07] MEDS ORDERED: ACETAMINOPHEN INJECTION 100 ML IVPB ONE (15:29)
[2023-07-07 16:07] LABS: HEMATOCRIT 28.8 % (35.4-49); HEMOGLOBIN 9.5 GM/dL (11.7-16.9); MCH 30.2 pg (25.7-33.7); MCHC 33.1 g/dl (32.0-35.9); MEAN CELL VOLUME 91.1 fl (80-96); MEAN PLT VOLUME 8.7 fl (7.5-11.1); PLATELET COUNT 501 10^3/uL (134-434); RBC 3.16 M/mm3 (4.00-5.60); WHITE BLOOD COUNT 6.4 K/mm3 (4.0-10.0)
[2023-07-07 16:20] LABS: INR 1.36 (0.83-1.09); PROTHROMBIN TIME (PATIENT) 15.7 SEC (9.7-13.0)
[2023-07-07 16:21] LABS: EPI CELLS 13 /uL (0-25.1); HYALINE CASTS 4 /uL (0-3.1); PH,URINE 5.5 (5.0-8.0); URINE APPEARANCE CLEAR; URINE BACTERIA 4 /uL (0-1359); URINE BILIRUBIN NEGATIVE (NEGATIVE); URINE COLOR YELLOW; URINE GLUCOSE (UA) NEGATIVE (NEGATIVE); URINE KETONE 1+ (NEGATIVE); URINE LEUK ESTERASE NEGATIVE (NEGATIVE); URINE NITRITE NEGATIVE (NEGATIVE); URINE PROTEIN 1+ (NEGATIVE); URINE WBC 18 /uL (0-25.8)
[2023-07-07 16:23] LABS: ACTIVATED PTT 33.9 SECONDS (25.2-36.5)
[2023-07-07 16:36] LABS: POTASSIUM 4.9 mmol/L (3.5-5.1)
[2023-07-07 16:38] LABS: ALBUMIN 2.6 g/dl (3.4-5.0); CALCIUM 9.2 mg/dL (8.5-10.1)
[2023-07-07 16:39] LABS: BLOOD UREA NITROGEN 23.9 mg/dL (7-18)
[2023-07-07 16:41] LABS: CREATININE 1.3 mg/dL (0.55-1.3)
[2023-07-07 16:43] LABS: BILIRUBIN,TOTAL 0.6 mg/dL (0.2-1); TOT PROT 6.5 g/dl (6.4-8.2)
[2023-07-07 17:31] LABS: ANISOCYTOSIS 0; MACROCYTOSIS 0; OVALOCYTE 1+
[2023-07-07 19:18] LABS: URINE RBC 32.6 /uL (0-23.9)
[2023-07-07] MEDS ORDERED: LACTULOSE 20 GM/30 ML UDC (FOR ORAL USE ONLY) PO ONE (19:30)
[2023-07-07] MEDS ORDERED: LACTULOSE 20 GM/30 ML UDC (FOR ORAL USE ONLY) ONE (20:03)
[2023-07-08] MEDS ORDERED: SODIUM CHLORIDE 250 ML IV ONE (09:15)
[2023-07-08] MEDS ORDERED: DEXAMETHASONE SODIUM PHOSPHATE 10 MG in SODIUM CHLORIDE 50 ML IVPB ONE (09:30)
[2023-07-08] MEDS ORDERED: GRANISETRON HCL/PF 1 MG in SODIUM CHLORIDE 50 ML IVPB ONE (09:30)
[2023-07-08] MEDS ORDERED: SODIUM CHLORIDE IV ONE (10:00)
[2023-07-08] MEDS ORDERED: GEMCITABINE HCL IV ONE (10:00)
[2023-07-08] MEDS ORDERED: PACLITAXEL PROTEIN BOUND IVPB ONE (10:30)
[2023-07-08] MEDS ORDERED: SODIUM CHLORIDE IVPB ONE (10:30)
== END 2023-07-07 21:34 | disposition home or self-care (01) ==
LOC: JER 13:34
PROC: 3E033NZ Introduction of Analgesics, Hypnotics, Sedatives into Peripheral Vein, Percutaneous Approach (ICD-10-PCS; principal; 2023-07-07)
PROC: 3E033GC Introduction of Other Therapeutic Substance into Peripheral Vein, Percutaneous Approach (ICD-10-PCS; 2023-07-07)
DX: K59.00 Constipation, unspecified (principal); R10.30 Lower abdominal pain, unspecified
CPT/HCPCS: 36415; 71045-TC-FY; 74177-TC; 80053; 81003; 83605; 83690; 84484; 85025; 85610; 85730; 87086; 93005; 93010; 99285-25

== ENCOUNTER → 2023-07-08 | Day surgery (SDC) | payer OTHER | END | disposition home or self-care (01) | LOC: JRADIR 12:29 | PROVIDERS: ATTEND Internal Medicine Gastroenterology | PROC: 0W9G3ZZ Drainage of Peritoneal Cavity, Percutaneous Approach (ICD-10-PCS; principal; 2023-07-08) | DX: R18.8 Other ascites (principal) | CPT/HCPCS: 49083; 76942-TC ==

== ENCOUNTER 2023-07-22 15:42 | Emergency (ER) | payer OTHER ==
[2023-07-22 16:01] VITALS: BMI 22.6
[2023-07-22] MEDS ORDERED: ACETAMINOPHEN 1000 MG/100 ML BAG IVPB ONE (18:13)
[2023-07-22] MEDS ORDERED: ONDANSETRON 4 MG/2 ML VIAL IVPUSH ONE (18:14)
[2023-07-22] MEDS ORDERED: ACETAMINOPHEN INJECTION 100 ML IVPB ONE (18:36)
[2023-07-22] MEDS ORDERED: ONDANSETRON 4 MG/2 ML VIAL ONE ×2 (18:36→18:55)
[2023-07-22 19:12] LABS: HEMOGLOBIN 10.8 GM/dL (11.7-16.9); MCH 29.1 pg (25.7-33.7); MCHC 31.8 g/dl (32.0-35.9); MEAN CELL VOLUME 91.6 fl (80-96); MEAN PLT VOLUME 9.6 fl (7.5-11.1); PLATELET COUNT 426 10^3/uL (134-434); RBC 3.71 M/mm3 (4.00-5.60); RDW 15.4 % (11.9-15.9); WHITE BLOOD COUNT 11.3 K/mm3 (4.0-10.0)
[2023-07-22 19:33] LABS: INR 1.26 (0.83-1.09); PROTHROMBIN TIME (PATIENT) 14.6 SEC (9.7-13.0)
[2023-07-22 19:36] LABS: ACTIVATED PTT 35.3 SECONDS (25.2-36.5); POTASSIUM 5.7 mmol/L (3.5-5.1)
[2023-07-22 19:38] LABS: CALCIUM 9.5 mg/dL (8.5-10.1)
[2023-07-22 19:39] LABS: ALBUMIN 2.7 g/dl (3.4-5.0); BLOOD UREA NITROGEN 26.4 mg/dL (7-18)
[2023-07-22 19:42] LABS: CREATININE 1.8 mg/dL (0.55-1.3)
[2023-07-22 19:44] LABS: BILIRUBIN,TOTAL 0.7 mg/dL (0.2-1); TOT PROT 6.8 g/dl (6.4-8.2)
[2023-07-22 20:30] LABS: ANISOCYTOSIS 1+; MACROCYTOSIS 1+; OVALOCYTE 1+
[2023-07-22 20:40] LABS: PLATELET ESTIMATE ADEQUATE
[2023-07-22] MEDS ORDERED: SODIUM CHLORIDE 0.9% 500 ML INFUS.BAG IV ONE (21:31)
[2023-07-22] MEDS ORDERED: MAGNESIUM CITRATE 300 ML BOTTLE PO ONE (23:20)
[2023-07-23] MEDS ORDERED: MAGNESIUM CITRATE 300 ML BOTTLE ONE (00:38)
[2023-07-23 01:02] LABS: POTASSIUM 4.6 mmol/L (3.5-5.1)
[2023-07-23 01:04] LABS: BLOOD UREA NITROGEN 25.1 mg/dL (7-18); CALCIUM 8.1 mg/dL (8.5-10.1)
[2023-07-23 01:08] LABS: CREATININE 1.6 mg/dL (0.55-1.3)
[2023-07-23 02:35] VITALS: BP 122/69; PULSE 85; RESP 20; TEMP 98
== END 2023-07-23 02:57 | disposition home or self-care (01) ==
LOC: JER 15:42
PROC: 3E023NZ Introduction of Analgesics, Hypnotics, Sedatives into Muscle, Percutaneous Approach (ICD-10-PCS; principal; 2023-07-22)
PROC: 3E023GC Introduction of Other Therapeutic Substance into Muscle, Percutaneous Approach (ICD-10-PCS; 2023-07-22)
DX: U07.1 COVID-19 (principal); K59.00 Constipation, unspecified; R53.81 Other malaise; R63.8 Other symptoms and signs concerning food and fluid intake; R11.0 Nausea; R10.9 Unspecified abdominal pain
CPT/HCPCS: 0241U-QW; 36415; 74176-TC; 80048; 80053; 83690; 85025; 85610; 85730; 93005; 93010; 99285-25

== ENCOUNTER 2023-08-02 12:15 | Inpatient (IN) | payer OTHER ==
[2023-08-02 12:22] VITALS: BMI 22.7
[2023-08-02] MEDS ORDERED: SODIUM CHLORIDE 0.9% 500 ML INFUS.BAG IV ONE ×2 (13:00→18:04)
[2023-08-02] MEDS ORDERED: PANTOPRAZOLE SODIUM 40 MG VIAL IVPUSH ONE (13:01)
[2023-08-02] MEDS ORDERED: FAMOTIDINE 20 MG/50 ML IVPB 20 MG/50 ML MG IVPB ONE ×2 (13:01→14:05)
[2023-08-02] MEDS ORDERED: PANTOPRAZOLE SODIUM 40 MG VIAL ONE (14:05)
[2023-08-02 14:12] LABS: INR 1.25 (0.83-1.09); PROTHROMBIN TIME (PATIENT) 14.5 SEC (9.7-13.0)
[2023-08-02 14:15] LABS: ACTIVATED PTT 32.7 SECONDS (25.2-36.5)
[2023-08-02 14:26] LABS: POTASSIUM 5.1 mmol/L (3.5-5.1)
[2023-08-02 14:28] LABS: ALBUMIN 2.6 g/dl (3.4-5.0); BLOOD UREA NITROGEN 39.9 mg/dL (7-18); CALCIUM 9.3 mg/dL (8.5-10.1)
[2023-08-02 14:33] LABS: BILIRUBIN,TOTAL 0.9 mg/dL (0.2-1); TOT PROT 6.2 g/dl (6.4-8.2)
[2023-08-02 14:36] LABS: N-TERMINAL BNP 720.1 pg/ml (5-450)
[2023-08-02 14:39] LABS: BASO % 0.1 % (0-2.0); EOS % 0.1 % (0-4.5); HEMATOCRIT 29.4 % (35.4-49); HEMOGLOBIN 9.5 GM/dL (11.7-16.9); LYMPH % 5.5 % (8-40); MCH 29.9 pg (25.7-33.7); MCHC 32.4 g/dl (32.0-35.9); MEAN CELL VOLUME 92.3 fl (80-96); MEAN PLT VOLUME 9.8 fl (7.5-11.1); MONO % 10.3 % (3.8-10.2); PLATELET COUNT 271 10^3/uL (134-434); RBC 3.18 M/mm3 (4.00-5.60); RDW 16.9 % (11.9-15.9); WHITE BLOOD COUNT 10.2 K/mm3 (4.0-10.0)
[2023-08-02 16:48] LABS: EPI CELLS 32 /uL (0-25.1); HYALINE CASTS 23 /uL (0-3.1); PH,URINE 5.5 (5.0-8.0); URINE APPEARANCE CLOUDY; URINE BACTERIA 0 /uL (0-1359); URINE BILIRUBIN NEGATIVE (NEGATIVE); URINE COLOR YELLOW; URINE GLUCOSE (UA) NEGATIVE (NEGATIVE); URINE KETONE TRACE (NEGATIVE); URINE LEUK ESTERASE TRACE (NEGATIVE); URINE NITRITE NEGATIVE (NEGATIVE); URINE PROTEIN 1+ (NEGATIVE); URINE RBC 17 /uL (0-23.9); URINE WBC 38 /uL (0-25.8)
[2023-08-02 20:43] LABS: BF WBC & OTHER NUCLEATED CELLS 400 /mm3
[2023-08-02 21:37] LABS: BODY FLUID MACROPHAGES 61 %; BODY FLUID MESOTHELIAL 3 %; BODY FLUID MONOCYTE 6 %
[2023-08-02] MEDS ORDERED: morphine SULFATE 10 MG/5 ML UNIT-DOSE CUP PO PRN (22:46)
[2023-08-02] MEDS ORDERED: FENTANYL PATCH WASTE TD PRN (22:46)
[2023-08-02] MEDS ORDERED: ACETAMINOPHEN 500 MG TABLET (FP) PO PRN (22:46)
[2023-08-02] MEDS ORDERED: fentaNYL 12mcg/hr PATCH.TD72 TD SCH (23:00)
[2023-08-02] MEDS ORDERED: ALBUMIN HUMAN 5% 250 ML IV SOLUTION IV ONE ×4 (23:42→23:55)
[2023-08-03] MEDS: ALBUMIN HUMAN 5% 250 ML IV SOLUTION IV SCH ×3 (00:50→02:39)
[2023-08-03 00:57] VITALS: RESP 18
[2023-08-03] MEDS ORDERED: HEPARIN NA (PORCINE) 5,000 UNITS/ML 1ML VIAL SQ SCH (06:00)
[2023-08-03] MEDS ORDERED: LEVOTHYROXINE NA 25 MCG TABLET (FP) ONE (06:01)
[2023-08-03] MEDS ORDERED: HEPARIN NA (PORCINE) 5,000 UNITS/ML 1ML VIAL ONE (06:02)
[2023-08-03] MEDS ORDERED: LEVOTHYROXINE NA 25 MCG TABLET (FP) PO SCH (07:00)
[2023-08-03 07:08] VITALS: BP 120/72; PULSE 88; TEMP 98.1
[2023-08-03 07:25] LABS: ALBUMIN 2.9 g/dl (3.4-5.0); BASO % 0.3 % (0-2.0); CALCIUM 9.3 mg/dL (8.5-10.1); EOS % 0.2 % (0-4.5); HEMATOCRIT 27.8 % (35.4-49); HEMOGLOBIN 9.1 GM/dL (11.7-16.9); LYMPH % 7.7 % (8-40); MCH 30.2 pg (25.7-33.7); MCHC 32.7 g/dl (32.0-35.9); MEAN CELL VOLUME 92.5 fl (80-96); MEAN PLT VOLUME 9.5 fl (7.5-11.1); NEUT % 76.8 % (42.8-82.8); PLATELET COUNT 214 10^3/uL (134-434); RDW 16.3 % (11.9-15.9); WHITE BLOOD COUNT 8.2 K/mm3 (4.0-10.0)
[2023-08-03 07:26] LABS: BLOOD UREA NITROGEN 35.9 mg/dL (7-18); MAGNESIUM 2.3 mg/dL (1.8-2.4)
[2023-08-03 07:29] LABS: CREATININE 1.8 mg/dL (0.55-1.3); PHOSPHOROUS 3.9 mg/dL (2.5-4.9)
[2023-08-03 07:30] LABS: BILIRUBIN,TOTAL 1.2 mg/dL (0.2-1)
[2023-08-03 08:03] LABS: BILIRUBIN,DIRECT 0.4 mg/dL (0.0-0.2)
[2023-08-03] MEDS ORDERED: PATIENT'S OWN MEDICATION (NON-FORMULARY) (Vit A/Vit C/Vit E/Zinc/Copper [Preservision Ared PO SCH (10:00)
[2023-08-03] MEDS ORDERED: CHOLECALCIFEROL (VIT D3) 400 UNIT (10 MCG) TABLET PO SCH (10:00)
[2023-08-03] MEDS ORDERED: amLODIPine BESYLATE 2.5 MG TABLET (FP) PO SCH (10:00)
[2023-08-03] MEDS ORDERED: PATIENT'S OWN MEDICATION (NON-FORMULARY) (Famotidine [Pepcid] 40 MG Tablet) PO SCH (10:00)
== END 2023-08-03 10:42 | disposition home or self-care (01) | DRG 436 ==
LOC: JER 12:15 → JERBED 20:55 → OBSVTOIN 21:42
PROVIDERS: ADMIT Internal Medicine; ATTEND Internal Medicine
PROC: 0W9G3ZZ Drainage of Peritoneal Cavity, Percutaneous Approach (ICD-10-PCS; principal; 2023-08-03)
DX: C25.7 Malignant neoplasm of other parts of pancreas (principal); C78.7 Secondary malignant neoplasm of liver and intrahepatic bile duct; R18.0 Malignant ascites; N17.9 Acute kidney failure, unspecified; J98.11 Atelectasis; I31.39 Other pericardial effusion (noninflammatory); E78.5 Hyperlipidemia, unspecified; N40.0 Benign prostatic hyperplasia without lower urinary tract symptoms; D64.89 Other specified anemias; E03.9 Hypothyroidism, unspecified; I12.9 Hypertensive chronic kidney disease with stage 1 through stage 4 chronic kidney disease, or unspecified chronic kidney disease; N18.9 Chronic kidney disease, unspecified; K44.9 Diaphragmatic hernia without obstruction or gangrene; R63.4 Abnormal weight loss; Z68.22 Body mass index [BMI] 22.0-22.9, adult; Z96.653 Presence of artificial knee joint, bilateral
CPT/HCPCS: 36415; 71045-TC-FY; 74176-TC; 80053; 81003; 82042; 82248; 82945; 83605; 83615; 83690; 83735; 83880; 84100; 84157; 84484; 85025; 85610; 85730; 86850; 86900; 86901; 87040; 87070; 87075; 87086; 87205; 93005; 93010; 99285-25; G0378; J1644